=== PATIENT | male | born 1930 | race Caucasian/White ===

== ENCOUNTER 2017-04-26 15:55 | Outpatient (CLI) | payer MEDICARE, OTHER | END 2017-04-26 15:56 | disposition home or self-care (01) | LOC: LAB.R 15:55 | PROVIDERS: ATTEND Physician Assistant Medical | DX: B34.9 Viral infection, unspecified (principal) | CPT/HCPCS: 87275; 87276 ==

== ENCOUNTER 2017-04-26 16:08 | Outpatient (CLI) | payer MEDICARE, OTHER ==
--- NOTE | 2017-04-26 17:07 | XRAY Report ---
EXAM: CHEST RADIOGRAPHY EXAM DATE: 04/26/2017 04:32 PM. CLINICAL HISTORY: Cough and fever for 3 days. COMPARISON: 10/18/2012. TECHNIQUE: 2 views. FINDINGS: Lungs/Pleura: No focal opacities evident. No pleural effusion. No pneumothorax. Normal volumes. Mediastinum: Heart and mediastinal contours are unremarkable. Other: No compression fractures. IMPRESSION: Normal 2-view chest radiography. [facility] Referring Provider Line: [phone] SITE ID: [id number]
== END 2017-04-26 16:09 | disposition home or self-care (01) ==
LOC: DI 16:08
PROVIDERS: ATTEND Physician Assistant Medical
DX: R05 Cough (principal)
CPT/HCPCS: 71046; 87275; 87276

== ENCOUNTER 2017-08-26 11:39 | Outpatient (CLI) | payer MEDICARE, OTHER ==
--- NOTE | 2017-08-26 16:27 | XRAY Report ---
RIGHT KNEE: 08/26/2017. COMPARISON: No comparison. INDICATION: Evaluate for internal derangement. TECHNIQUE: Four views. FINDINGS: Medial component prosthesis is noted. There are moderate degenerative changes at the lateral femorotibial compartment and patellofemoral joint. Vascular calcifications are noted. Normal alignment. No acute bone findings. IMPRESSION: 1. MEDIAL COMPARTMENT PROSTHESIS. NORMAL APPEARING ALIGNMENT. 2. MODERATE DEGENERATIVE CHANGES OF THE LATERAL FEMOROTIBIAL COMPARTMENT AND PATELLOFEMORAL JOINT. TD: 08/26/2017 12:51 [facility]
== END 2017-08-26 11:40 | disposition home or self-care (01) ==
LOC: DI 11:39
PROVIDERS: ATTEND Nurse Practitioner Primary Care
DX: M23.91 Unspecified internal derangement of right knee (principal); Z96.651 Presence of right artificial knee joint

== ENCOUNTER 2017-10-13 08:10 | Outpatient (CLI) | payer MEDICARE, OTHER ==
[2017-10-13 13:00] LABS: BASOPHILS # (AUTO) 0.1 10^3/uL (0.0-0.1); BASOPHILS % (AUTO) 0.9 %; EOSINOPHILS # (AUTO) 0.1 10^3/uL (0.0-0.7); EOSINOPHILS % (AUTO) 1.5 %; HGB - HEMOGLOBIN 15.8 g/dL (14.0-18.0); LYMPHOCYTES # (AUTO) 1.2 10^3/uL (1.5-3.5); LYMPHOCYTES % (AUTO) 17.9 %; MEAN CORPUSCULAR HEMOGLOBIN 27.9 pg (27.0-31.0); MEAN CORPUSCULAR HGB CONC 33.3 g/dL (32.0-36.0); MEAN CORPUSCULAR VOLUME 83.7 fL (80.0-94.0); MEAN PLATELET VOLUME 9.1 fL (7.4-11.4); MONOCYTES # (AUTO) 0.7 10^3/uL (0.0-1.0); MONOCYTES % (AUTO) 11.5 %; NEUTROPHILS # (AUTO) 4.4 10^3/uL (1.5-6.6); NEUTROPHILS % (AUTO) 68.2 %; PLT - PLATELET COUNT 211 10^3/uL (130-450); RED BLOOD COUNT 5.66 10^6/uL (4.70-6.10); WHITE BLOOD COUNT 6.4 x10^3/uL (4.8-10.8)
[2017-10-13 13:13] LABS: ALBUMIN/GLOBULIN RATIO 1.1 (1.0-2.2); ALKALINE PHOSPHATASE 56 IU/L (42-121); ALT ALANINE AMINOTRANSFERASE 29 IU/L (10-60); AST ASPARTATE AMINOTRANSFERASE 28 IU/L (10-42); BUN - BLOOD UREA NITROGEN 19 mg/dL (6-20); CALCIUM 9.1 mg/dL (8.5-10.3); CARBON DIOXIDE - CO2 28 mmol/L (21-32); CHLORIDE 97 mmol/L (101-111); CHOL/HDL RATIO 2.5 (<5.0); CHOLESTEROL 179 mg/dL; CREATININE 0.8 mg/dL (0.6-1.2); GFR - MDRD 91 (>89); GLUCOSE 96 mg/dL (70-100); HDL CHOLESTEROL 71 mg/dL; LDL CHOLESTEROL,CALCULATED 92 mg/dL; LDL/HDL RATIO 1.3 (<3.6); SODIUM 135 mmol/L (135-145); TOTAL PROTEIN 7.8 g/dL (6.7-8.2); VLDL CHOLESTEROL 16 mg/dL
[2017-10-13 13:20] LABS: HB2 TOTAL 17.7 g/dL; HEMOGLOBIN A1C 0.66 g/dL; HEMOGLOBIN A1C % 5.6 % (4.6-6.2)
== END 2017-10-13 08:11 | disposition home or self-care (01) ==
LOC: LAB.R 08:10
PROVIDERS: ATTEND Internal Medicine
DX: I35.0 Nonrheumatic aortic (valve) stenosis (principal); R73.9 Hyperglycemia, unspecified; E78.5 Hyperlipidemia, unspecified; I48.92 Unspecified atrial flutter; I42.9 Cardiomyopathy, unspecified; Z79.899 Other long term (current) drug therapy; M19.90 Unspecified osteoarthritis, unspecified site
CPT/HCPCS: 80053; 80061; 83036; 83721; 84443; 85025

== ENCOUNTER 2017-10-31 11:12 | Outpatient (CLI) | payer MEDICARE, OTHER | END 2017-10-31 11:13 | disposition home or self-care (01) | LOC: DI 11:12 | PROVIDERS: ATTEND Internal Medicine | DX: I35.0 Nonrheumatic aortic (valve) stenosis (principal); I51.7 Cardiomegaly | CPT/HCPCS: 93306 ==